=== PATIENT | male | born 1955 | race Two or more races ===

== ENCOUNTER 2016-12-14 14:01 | Emergency (ER) | payer MEDICAID, OTHER ==
[~2016-12-14] VITALS: Ht 165.1 cm; Wt 73.0 kg
[~2016-12-14 14:01] MED LIST: IOHEXOL-300 100 ML BOTTLE ONE; SODIUM CHLORIDE 0.9% 10ML VIAL ONE
[2016-12-14] MEDS ORDERED: KETOROLAC 60MG/2ML VIAL IM ONE (19:45)
[2016-12-14 21:41] LABS: HEMATOCRIT 40.7 % (42.0-52.0); HEMOGLOBIN 13.2 g/dL (14.0-18.0); MEAN CORPUSCULAR HEMOGLOBIN 30.3 pg (28.0-32.0); MEAN CORPUSCULAR VOLUME 93.1 fL (80.0-94.0); PLATELET 292 x1000/uL (130-400); RED BLOOD CELL COUNT 4.37 mill/uL (4.7-6.1); RED CELL DISTRIBUTION WIDTH 14.1 % (11.6-14.6)
[2016-12-14 21:52] LABS: CARBON DIOXIDE 27 mEq/L (21-32); CHLORIDE 103 mEq/L (98-107)
[2016-12-15] MEDS ORDERED: ACETAMINOPHEN WITH CODEINE 300/30MG TABLET PO ONE
[2016-12-15 02:57] VITALS: BP 116/64
== END 2016-12-15 03:02 | disposition home or self-care (01) ==
LOC: ER 14:01
DX: R22.1 Localized swelling, mass and lump, neck (principal); R51 Headache; H92.01 Otalgia, right ear; E78.00 Pure hypercholesterolemia, unspecified
CPT/HCPCS: 36415; 70491; 80048; 85027; 96372; 99285; A4216; J1885; Q9967; Z7610

== ENCOUNTER 2017-02-27 12:06 | Inpatient (IN) | payer MEDICAID ==
[~2017-02-27] VITALS: Ht 165.1 cm; Wt 56.7 kg
[2017-02-27] MEDS ORDERED: AMLO10TA80 PO (12:38)
[2017-02-27] MEDS ORDERED: LISI-186 PO (12:38)
[2017-02-27] MEDS ORDERED: ASPI-1159 PO (12:38)
[2017-02-27] MEDS ORDERED: HYDR-3280 PO (12:38)
[2017-02-27] MEDS ORDERED: SODIUM CHLORIDE 0.9% 1,000 ML IV ONE (13:01)
[2017-02-27 13:26] LABS: BASOPHILS % 0.4 % (0.0-2.0); EOSINOPHILS % 0.1 % (0.0-5.0); HEMOGLOBIN. 9.8 g/dL (14.0-18.0); LYMPHOCYTES % 10.3 % (20.0-50.0); MEAN CORPUSCULAR HEMOGLOBIN 30.6 pg (28.0-32.0); MEAN CORPUSCULAR VOLUME 94.2 fL (80.0-94.0); MEAN PLATELET VOLUME 7.7 fl (7.4-10.4); MONOCYTES % 7.4 % (2.0-8.0); NEUTROPHILS % 81.8 % (40.0-76.0); PLATELET 471 x1000/uL (130-400); RED BLOOD CELL COUNT 3.18 mill/uL (4.7-6.1); RED CELL DISTRIBUTION WIDTH 15.8 % (11.6-14.6)
[2017-02-27 13:31] LABS: INR 1.1; PROTHROMBIN TIME 11.3 sec (9.4-11.6)
[2017-02-27 13:36] LABS: CARBON DIOXIDE 30 mEq/L (21-32); CHLORIDE 96 mEq/L (98-107)
[2017-02-27] MEDS ORDERED: MORPHINE SULFATE 4 MG/ML CPJ (NOT FOR IM USE) IV ONE (13:45)
[2017-02-27 16:45] VITALS: BP 138/79
[2017-02-27] MEDS ORDERED: ACETAMINOPHEN 325MG TABLET PO PRN (17:45)
[2017-02-27] MEDS ORDERED: CLONIDINE 0.1MG TABLET PO PRN (17:45)
[2017-02-27] MEDS ORDERED: GUAIFENESIN 200MG/10ML SUGAR FREE UDC PO PRN (17:45)
[2017-02-27] MEDS ORDERED: DIPHENHYDRAMINE 50MG/ML VIAL IV PRN (17:45)
[2017-02-27] MEDS ORDERED: MORPHINE SULFATE 2 MG/ML CPJ (NOT FOR IM USE) IV PRN (17:45)
[2017-02-27] MEDS ORDERED: ACETAMINOPHEN 650MG/20.3ML UDC GT PRN (17:45)
[2017-02-27] MEDS ORDERED: NA PHOS,M-B/NA PHOS,DI-BA ENEMA 118ML PR PRN (17:45)
[2017-02-27] MEDS ORDERED: DOCUSATE SODIUM 100MG CAPSULE PO PRN (17:45)
[2017-02-27] MEDS ORDERED: ACETAMINOPHEN 650MG SUPP PR PRN (17:45)
[2017-02-27] MEDS ORDERED: IPRATROPIUM/ALBUTEROL 0.5-3(2.5)MG/3ML NEB INH PRN (17:45)
[2017-02-27] MEDS ORDERED: MAGNESIUM/ALUMINUM HYDROXIDE/SIMETHICONE 30ML UDC PO PRN (17:45)
[2017-02-27] MEDS: ENOXAPARIN 40MG/0.4ML SYR SUBCUT SCH (18:10)
[2017-02-27] MEDS: MORPHINE SULFATE 4 MG/ML CPJ (NOT FOR IM USE) IV PRN ×2 (18:11→23:34)
[2017-02-27 18:14] VITALS: BP 138/79
[2017-02-27] MEDS: DEXT 5%/0.45% NACL 1000ML 1,000 ML IV SCH (19:00)
[2017-02-27 19:18] LABS: CLARITY URINE CLOUDY (CLEAR); COLOR URINE DARK YELLOW (YELLOW); GLUCOSE URINE NEGATIVE (NEGATIVE); KETONES URINE NEGATIVE (NEGATIVE); LEUKOCYTE ESTERASE URINE NEGATIVE (NEGATIVE); NITRITE URINE NEGATIVE (NEGATIVE); OCCULT BLOOD URINE NEGATIVE (NEGATIVE); PH URINE 8.5 (4.5-8.0); PROTEIN URINE NEGATIVE (NEGATIVE); SPECIFIC GRAVITY URINE 1.022 (1.005-1.030)
[2017-02-27 19:34] LABS: *AMPHETAMINES SCREEN URINE NEGATIVE (NEGATIVE); *BARBITURATES SCREEN URINE NEGATIVE (NEGATIVE); *BENZODIAZEPINES SCREEN URINE NEGATIVE (NEGATIVE); *COCAINE SCREEN URINE NEGATIVE (NEGATIVE); CANNABINOID URINE SCREEN NEGATIVE (NEGATIVE); METHADONE URINE SCREEN NEGATIVE (NEGATIVE); OPIATES URINE SCREEN PRESUMTIVE POSITIVE (NEGATIVE); PHENCYCLIDINE URINE SCREEN NEGATIVE (NEGATIVE)
[2017-02-27 20:00] VITALS: BP 150/68
[2017-02-27] MEDS: SODIUM CHLORIDE 0.9% INJ 3ML FLUSH IVF SCH (22:46)
[2017-02-28] VITALS: BP 151/70
[2017-02-28 04:00] VITALS: BP 149/67
[2017-02-28] MEDS: SODIUM CHLORIDE 0.9% INJ 3ML FLUSH IVF SCH ×3 (05:29→22:00)
[2017-02-28] MEDS: DEXT 5%/0.45% NACL 1000ML 1,000 ML IV SCH ×2 (05:29→14:00)
[2017-02-28 07:09] LABS: BASOPHILS % 0.2 % (0.0-2.0); EOSINOPHILS % 0.1 % (0.0-5.0); HEMATOCRIT. 28.8 % (42.0-52.0); HEMOGLOBIN. 9.4 g/dL (14.0-18.0); LYMPHOCYTES % 10.4 % (20.0-50.0); MEAN CORPUSCULAR VOLUME 95.2 fL (80.0-94.0); MEAN PLATELET VOLUME 8.7 fl (7.4-10.4); MONOCYTES % 10.7 % (2.0-8.0); NEUTROPHILS % 78.6 % (40.0-76.0); PLATELET 471 x1000/uL (130-400); RED BLOOD CELL COUNT 3.03 mill/uL (4.7-6.1); RED CELL DISTRIBUTION WIDTH 16.2 % (11.6-14.6)
[2017-02-28 08:10] LABS: CARBON DIOXIDE 27 mEq/L (21-32); CHLORIDE 94 mEq/L (98-107); HDL CHOLESTEROL 38 mg/dL (40-59); LDL CHOLESTEROL 50 mg/dL (5-100)
[2017-02-28] MEDS: MORPHINE SULFATE 4 MG/ML CPJ (NOT FOR IM USE) IV PRN (17:22)
[2017-02-28] MEDS: ENOXAPARIN 40MG/0.4ML SYR SUBCUT SCH (17:23)
[2017-02-28] MEDS ORDERED: POTASSIUM CHLORIDE 20MEQ TABLET SR PO NR (18:00)
[2017-02-28 20:00] VITALS: BP 122/69
[2017-02-28] MEDS ORDERED: IOHEXOL-300 100 ML BOTTLE ONE (21:29)
[2017-03-01] VITALS: BP 145/72
[2017-03-01 04:00] VITALS: BP 145/68
[2017-03-01] MEDS: DEXT 5%/0.45% NACL 1000ML 1,000 ML IV SCH ×3 (07:50→23:02)
[2017-03-01] MEDS: SODIUM CHLORIDE 0.9% INJ 3ML FLUSH IVF SCH ×3 (07:51→23:02)
[2017-03-01] MEDS: MORPHINE SULFATE 4 MG/ML CPJ (NOT FOR IM USE) IV PRN ×4 (09:27→23:13)
[2017-03-01 12:00] VITALS: BP 137/88
[2017-03-01 14:21] LABS: BASOPHILS % 0.2 % (0.0-2.0); EOSINOPHILS % 0.2 % (0.0-5.0); HEMATOCRIT. 28.3 % (42.0-52.0); HEMOGLOBIN. 9.1 g/dL (14.0-18.0); LYMPHOCYTES % 14.3 % (20.0-50.0); MEAN CORPUSCULAR HEMOGLOBIN 30.8 pg (28.0-32.0); MEAN CORPUSCULAR VOLUME 95.2 fL (80.0-94.0); MONOCYTES % 9.5 % (2.0-8.0); NEUTROPHILS % 75.8 % (40.0-76.0); PLATELET 442 x1000/uL (130-400); RED BLOOD CELL COUNT 2.97 mill/uL (4.7-6.1); RED CELL DISTRIBUTION WIDTH 15.4 % (11.6-14.6)
[2017-03-01 14:49] LABS: CARBON DIOXIDE 27 mEq/L (21-32); CHLORIDE 95 mEq/L (98-107)
[2017-03-01 16:00] VITALS: BP 134/73
[2017-03-01] MEDS: ENOXAPARIN 40MG/0.4ML SYR SUBCUT SCH (17:45)
[2017-03-01 20:00] VITALS: BP 139/77
[2017-03-02] VITALS: BP 139/68
[2017-03-02 04:00] VITALS: BP 138/72
[2017-03-02] MEDS: SODIUM CHLORIDE 0.9% INJ 3ML FLUSH IVF SCH ×2 (06:57→14:00)
[2017-03-02 08:00] VITALS: BP 131/66
[2017-03-02] MEDS: MORPHINE SULFATE 4 MG/ML CPJ (NOT FOR IM USE) IV PRN ×2 (10:59→18:18)
[2017-03-02 12:00] VITALS: BP 130/60
[2017-03-02] MEDS: SODIUM CHLORIDE 0.9% 1,000 ML IV SCH (12:00)
[2017-03-02 13:40] LABS: BASOPHILS % 0.2 % (0.0-2.0); EOSINOPHILS % 0.2 % (0.0-5.0); HEMATOCRIT. 26.3 % (42.0-52.0); HEMOGLOBIN. 8.4 g/dL (14.0-18.0); LYMPHOCYTES % 15.1 % (20.0-50.0); MEAN CORPUSCULAR HEMOGLOBIN 30.4 pg (28.0-32.0); MEAN CORPUSCULAR VOLUME 94.7 fL (80.0-94.0); MEAN PLATELET VOLUME 7.6 fl (7.4-10.4); MONOCYTES % 13.7 % (2.0-8.0); NEUTROPHILS % 70.8 % (40.0-76.0); PLATELET 438 x1000/uL (130-400); RED BLOOD CELL COUNT 2.78 mill/uL (4.7-6.1); RED CELL DISTRIBUTION WIDTH 15.5 % (11.6-14.6)
[2017-03-02 14:02] LABS: CARBON DIOXIDE 29 mEq/L (21-32); CHLORIDE 97 mEq/L (98-107)
[2017-03-02 16:00] VITALS: BP 130/70
[2017-03-02] MEDS ORDERED: SODIUM CHLORIDE 0.9% 1,000 ML IV SCH (16:52)
[2017-03-02] MEDS ORDERED: MORPHINE SULFATE 2 MG/ML CPJ (NOT FOR IM USE) IV PRN (17:00)
[2017-03-02] MEDS ORDERED: ONDANSETRON HCL 4MG/2ML VIAL IV PRN (17:00)
[2017-03-02] MEDS: ENOXAPARIN 40MG/0.4ML SYR SUBCUT SCH (18:00)
[2017-03-02 20:00] VITALS: BP 135/59
[2017-03-03] VITALS: BP 151/82
[2017-03-03] MEDS: MORPHINE SULFATE 4 MG/ML CPJ (NOT FOR IM USE) IV PRN ×2 (00:56→05:41)
[2017-03-03 04:00] VITALS: BP 149/77
[2017-03-03] MEDS: SODIUM CHLORIDE 0.9% 1,000 ML IV SCH ×2 (04:31→13:41)
[2017-03-03] MEDS: SODIUM CHLORIDE 0.9% INJ 3ML FLUSH IVF SCH ×2 (05:44→15:06)
[2017-03-03 08:00] VITALS: BP 146/66
[2017-03-03] MEDS: HYDROCODONE/ACETAMINOPHEN 5/325MG TABLET PO PRN ×3 (10:16→22:04)
[2017-03-03 12:00] VITALS: BP 119/65
[2017-03-03] MEDS: DEXT 5%/0.45% NACL 1000ML 1,000 ML IV SCH (12:00)
[2017-03-03 16:00] VITALS: BP 130/71
[2017-03-03] MEDS: ENOXAPARIN 40MG/0.4ML SYR SUBCUT SCH (18:15)
[2017-03-03 20:00] VITALS: BP 128/72
[2017-03-04] VITALS: BP 142/76
[2017-03-04] MEDS: MORPHINE SULFATE 4 MG/ML CPJ (NOT FOR IM USE) IV PRN ×3 (00:06→10:35)
[2017-03-04 04:00] VITALS: BP 148/74
[2017-03-04] MEDS: SODIUM CHLORIDE 0.9% 1,000 ML IV SCH ×2 (05:31→13:08)
[2017-03-04 08:00] VITALS: BP 145/74
[2017-03-04] MEDS: DEXT 5%/0.45% NACL 1000ML 1,000 ML IV SCH (08:00)
[2017-03-04 11:30] VITALS: BP 154/78
[2017-03-04] MEDS: HYDROCODONE/ACETAMINOPHEN 5/325MG TABLET PO PRN (13:06)
[2017-03-04] MEDS: SODIUM CHLORIDE 0.9% INJ 3ML FLUSH IVF SCH (13:09)
[2017-03-04 15:43] VITALS: BP 154/77
[2017-03-04 16:00] VITALS: BP 154/77
== END 2017-03-04 17:40 | disposition home health service (06) | DRG 240 ==
LOC: ER 12:07 → 6EST 14:52 → EDBEDREQ 14:55 → EDBEDREQTM 14:55 → EDBEDREQSVC 14:55 → ENRESERV 15:28
PROVIDERS: ADMIT Family Medicine; ATTEND Family Medicine
PROC: 0DB38ZX Excision of Lower Esophagus, Via Natural or Artificial Opening Endoscopic, Diagnostic (ICD-10-PCS; 2017-03-02)
PROC: 0DH63UZ Insertion of Feeding Device into Stomach, Percutaneous Approach (ICD-10-PCS; principal; 2017-03-02 16:00)
DX: C15.9 Malignant neoplasm of esophagus, unspecified (principal); C76.0 Malignant neoplasm of head, face and neck; R13.12 Dysphagia, oropharyngeal phase; E46 Unspecified protein-calorie malnutrition; E86.0 Dehydration; I10 Essential (primary) hypertension; D64.9 Anemia, unspecified; F10.10 Alcohol abuse, uncomplicated; F17.200 Nicotine dependence, unspecified, uncomplicated; Z85.01 Personal history of malignant neoplasm of esophagus; Z92.3 Personal history of irradiation; Z79.82 Long term (current) use of aspirin; Z79.899 Other long term (current) drug therapy; Z72.89 Other problems related to lifestyle; Z68.20 Body mass index [BMI] 20.0-20.9, adult
CPT/HCPCS: 36415; 70491; 71010; 80053; 80061; 80305; 81001; 85025; 85610; 88305; 88312; 92610; 93005; 96361; 96374; 99285; J1650; J2270; J3490; J7030; Q9967

== ENCOUNTER 2017-06-04 13:04 | Inpatient (IN) | payer MEDICAID ==
[~2017-06-04] VITALS: Ht 162.6 cm; Wt 42.2 kg
[2017-06-04] MEDS: SODIUM CHLORIDE 0.9% 1,000 ML IV SCH (09:00)
[~2017-06-04 13:04] MED LIST changes: +AMLO10TA80 PO; +ASPI-1159 PO; +HYDR-3280 PO; -IOHEXOL-300 100 ML BOTTLE ONE; +LISI-186 PO; -SODIUM CHLORIDE 0.9% 10ML VIAL ONE
[2017-06-04] MEDS ORDERED: ENOXAPARIN 30MG/0.3ML SYR SUBCUT SCH (14:00)
[2017-06-04] MEDS ORDERED: SODIUM CHLORIDE 0.9% 1,000 ML IV ONE ×2 (14:34→15:45)
[2017-06-04 15:06] LABS: HEMOGLOBIN. 9.5 g/dL (14.0-18.0); MEAN CORPUSCULAR HEMOGLOBIN 29.1 pg (28.0-32.0); MEAN CORPUSCULAR VOLUME 88.7 fL (80.0-94.0); MEAN PLATELET VOLUME 8.7 fl (7.4-10.4); PLATELET 89 x1000/uL (130-400); RED BLOOD CELL COUNT 3.28 mill/uL (4.7-6.1)
[2017-06-04 15:11] LABS: INR 1.1; PROTHROMBIN TIME 11.3 sec (9.4-11.6)
[2017-06-04 15:13] LABS: CHLORIDE 101 mEq/L (98-107)
[2017-06-04 15:21] LABS: CARBON DIOXIDE 32 mEq/L (21-32)
[2017-06-04] MEDS ORDERED: POTASSIUM CHLORIDE INJ 40 MEQ in DEXT 5% WATER 250 ML IV ONE (15:45)
[2017-06-04 16:09] LABS: PLATELET ESTIMATE DECREASED
[2017-06-04] MEDS ORDERED: MORPHINE SULFATE 2 MG/ML CPJ (NOT FOR IM USE) IV ONE (16:45)
[2017-06-04] MEDS ORDERED: MORPHINE SULFATE 4 MG/ML CPJ (NOT FOR IM USE) IV NR (17:00)
[2017-06-04] MEDS ORDERED: IPRATROPIUM/ALBUTEROL 0.5-3(2.5)MG/3ML NEB INH PRN (18:45)
[2017-06-04] MEDS ORDERED: ONDANSETRON HCL 4MG/2ML VIAL IV PRN (18:45)
[2017-06-04] MEDS ORDERED: MORPHINE SULFATE 4 MG/ML CPJ (NOT FOR IM USE) IV PRN (18:45)
[2017-06-04 19:57] LABS: CARBON DIOXIDE 31 mEq/L (21-32); CHLORIDE 104 mEq/L (98-107)
[2017-06-05 01:12] LABS: CLARITY URINE CLEAR (CLEAR); COLOR URINE YELLOW (YELLOW); KETONES URINE TRACE (NEGATIVE); LEUKOCYTE ESTERASE URINE TRACE (NEGATIVE); NITRITE URINE NEGATIVE (NEGATIVE); OCCULT BLOOD URINE NEGATIVE (NEGATIVE); PROTEIN URINE 1+ (NEGATIVE); SPECIFIC GRAVITY URINE 1.023 (1.005-1.030)
[2017-06-05 05:33] LABS: HEMATOCRIT. 25.1 % (42.0-52.0); HEMOGLOBIN. 8.3 g/dL (14.0-18.0); MEAN CORPUSCULAR VOLUME 88.3 fL (80.0-94.0); MEAN PLATELET VOLUME 8.2 fl (7.4-10.4); PLATELET 60 x1000/uL (130-400); RED BLOOD CELL COUNT 2.85 mill/uL (4.7-6.1); RED CELL DISTRIBUTION WIDTH 17.7 % (11.6-14.6)
[2017-06-05 06:09] LABS: PLATELET ESTIMATE DECREASED
[2017-06-05] MEDS ORDERED: MAGNESIUM 2 G PREMIX 50 ML IV SCH (11:30)
[2017-06-05 12:00] VITALS: BP 127/74
[2017-06-05 13:06] VITALS: BP 127/74
[2017-06-05] MEDS: SODIUM CHLORIDE 0.9% 1,000 ML IV SCH (15:25)
[2017-06-05 16:00] VITALS: BP 131/73
[2017-06-05 20:00] VITALS: BP 118/73
[2017-06-05] MEDS ORDERED: MAGNESIUM 2 G PREMIX 50 ML IV NR (20:00)
[2017-06-06] VITALS: BP 120/69
[2017-06-06 04:00] VITALS: BP 108/69
[2017-06-06 07:56] LABS: BASOPHILS % 0.3 % (0.0-2.0); HEMATOCRIT. 21.5 % (42.0-52.0); HEMOGLOBIN. 7.3 g/dL (14.0-18.0); LYMPHOCYTES % 25.2 % (20.0-50.0); MEAN CORPUSCULAR HEMOGLOBIN 29.8 pg (28.0-32.0); MEAN CORPUSCULAR VOLUME 87.7 fL (80.0-94.0); MEAN PLATELET VOLUME 9.4 fl (7.4-10.4); MONOCYTES % 12.4 % (2.0-8.0); NEUTROPHILS % 62.1 % (40.0-76.0); RED BLOOD CELL COUNT 2.45 mill/uL (4.7-6.1); RED CELL DISTRIBUTION WIDTH 16.8 % (11.6-14.6)
[2017-06-06 08:00] VITALS: BP 117/64
[2017-06-06 08:39] LABS: PLATELET 40 x1000/uL (130-400)
[2017-06-06 08:48] LABS: CHLORIDE 100 mEq/L (98-107)
[2017-06-06] MEDS ORDERED: LISINOPRIL 5MG TABLET PO SCH (09:00)
[2017-06-06] MEDS ORDERED: AMLODIPINE 10MG TABLET PO SCH (09:00)
[2017-06-06 09:25] LABS: CARBON DIOXIDE 26 mEq/L (21-32)
[2017-06-06] MEDS ORDERED: BARIUM SULFATE 176 GM SUSP.RECON ONE (10:06)
[2017-06-06 10:20] LABS: PLATELET ESTIMATE MARKEDLY DECREASED
[2017-06-06] MEDS ORDERED: POTASSIUM CHLORIDE 20MEQ TABLET SR PO SCH (11:45)
[2017-06-06 12:00] VITALS: BP 133/62
[2017-06-06 17:01] VITALS: BP 129/67
== END 2017-06-06 18:20 | disposition hospice, inpatient (51) | DRG 240 ==
LOC: ER 14:56 → 5WST 15:59 → ENRESERV 06-05 08:15 → CANRESERV 06-05 08:15 → ENRESERV 06-05 08:36 → CANRESERV 06-05 08:36 → EDBEDREQSVC 06-05 09:14 → ENRESERV 06-05 11:08
PROVIDERS: ADMIT Internal Medicine; ATTEND Internal Medicine
PROC: BD11YZZ Fluoroscopy of Esophagus using Other Contrast (ICD-10-PCS; principal; 2017-06-06)
DX: C78.89 Secondary malignant neoplasm of other digestive organs (principal); C49.9 Malignant neoplasm of connective and soft tissue, unspecified; E83.42 Hypomagnesemia; R13.10 Dysphagia, unspecified; C76.0 Malignant neoplasm of head, face and neck; Z93.1 Gastrostomy status; E87.6 Hypokalemia; I10 Essential (primary) hypertension; D63.8 Anemia in other chronic diseases classified elsewhere; F17.210 Nicotine dependence, cigarettes, uncomplicated; R63.6 Underweight; Z66 Do not resuscitate; Z79.82 Long term (current) use of aspirin; Z79.899 Other long term (current) drug therapy
CPT/HCPCS: 36415; 71045; 74220; 80048; 80053; 81001; 83605; 83735; 84134; 85025; 85610; 87040; 92610; 93005; 99285; J2270; J2405; J3475; J3480; J7030; J7060